=== PATIENT | male | born 1960 | race Caucasian/White ===

== ENCOUNTER 2017-12-23 05:01 | Observation (INO) | payer BC ==
[2017-12-23] MEDS ORDERED: Sodium Chloride 0.9% 1,000 ML IV ONE (05:25)
[2017-12-23] MEDS ORDERED: Sodium Chloride 0.9% 1,000 ML ONE ×2 (05:36→08:32)
--- NOTE | 2017-12-23 05:37 | C.PDOC ---
History Of Present Illness 57 year old male presents to the ER with a complaint of intermittent left flank pain for the past few days that has worsened today. Patient has a Hx of kidney stones and notes the pain feels similar to that. Denies fever, chills, nausea, or vomiting. Chief Complaint (Nursing): Male Genitourinary History Per: Patient History/Exam Limitations: no limitations Onset/Duration Of Symptoms: Days, Intermittent Episodes Quality Of Discomfort: Unable To Describe Associated Symptoms: Back Pain (Left flank). denies: Fever, Chills, Nausea, Vomiting Alleviating Factors: None Recent travel outside of the [place]: No Past Medical History Reviewed: Historical Data, Nursing Documentation, Vital Signs Vital Signs: Last Vital Signs Temp 97.8 F 12/23/17 05:12 Pulse 93 H 12/23/17 05:12 Resp 18 12/23/17 05:12 BP 174/94 H 12/23/17 05:12 Pulse Ox 96 12/23/17 05:39 - Medical History PMH: Kidney Stones, Chronic Kidney Disease Surgical History: Appendectomy, Cholecystectomy Family History: States: Unknown Family Hx - Social History Hx Alcohol Use: No Hx Substance Use: No - Immunization History Hx Tetanus Toxoid Vaccination: No Hx Influenza Vaccination: No Hx Pneumococcal Vaccination: No Review Of Systems Constitutional: Negative for: Fever, Chills Cardiovascular: Negative for: Chest Pain, Palpitations Respiratory: Negative for: Shortness of Breath Gastrointestinal: Negative for: Nausea, Vomiting Musculoskeletal: Positive for: Back Pain (Left flank) Physical Exam - Physical Exam Appears: Non-toxic Skin: Normal Color, Warm, Dry Head: Atraumatic, Normacephalic Eye(s): bilateral: Normal Inspection Oral Mucosa: Moist Chest: Symmetrical, No Tenderness Cardiovascular: Rhythm Regular Respiratory: Normal Breath Sounds, No Rales, No Rhonchi, No Wheezing Gastrointestinal/Abdominal: Soft, Tenderness (LLQ), No Guarding, No Rebound Back: CVA Tenderness (Left), No Vertebral Tenderness, No Paraspinal Tenderness Neurological/Psych: Oriented x3, Normal Speech, Other (No focal deficits) ED Course And Treatment - Laboratory Results Result Diagrams: 12/23/17 05:38 12/23/17 05:38 O2 Sat by Pulse Oximetry: 96 (Room air) Pulse Ox Interpretation: Normal Progress Note: CT abd/pel, blood work, and urinalysis ordered. Flomax, IV fluids , and toradol administered. Disposition Counseled Patient/Family Regarding: Diagnosis - Disposition Disposition Time: 07:00 Condition: STABLE Forms: [facility] (Romanian) - Clinical Impression Clinical Impression: Left flank pain - Scribe Statement The provider has reviewed the documentation as recorded by the Scribe Flako Jauregui All medical record entries made by the Scribe were at my direction and personally dictated by me. I have reviewed the chart and agree that the record accurately reflects my personal performance of the history, physical exam, medical decision making, and the department course for this patient. I have also personally directed, reviewed, and agree with the discharge instructions and disposition.
[2017-12-23 05:40] LABS: BASO % 0.3 % (0.0-2.0); HEMOGLOBIN 13.7 g/dL (12.0-18.0); LYMPH # 0.9 K/uL (1.0-4.3); LYMPH % 7.5 % (20.0-40.0); MEAN CELL VOLUME 92.2 fL (80.0-94.0); MEAN CORPUSCULAR HEMOGLOBIN 30.9 pg (27.0-31.0); MEAN CORPUSCULAR HGB CONC 33.5 g/dL (33.0-37.0); MEAN PLATELET VOLUME 7.1 fL (7.2-11.7); MONO # 0.7 K/uL (0.0-0.8); MONO % 5.8 % (0.0-10.0); NEUT # 10.4 K/uL (1.8-7.0); NEUT % 86.4 % (50.0-75.0); PLATELET COUNT 197 K/uL (130-400); RBC 4.42 Mil/uL (4.40-5.90)
[2017-12-23 05:43] LABS: SQUAMOUS EPITHIAL < 1 /hpf (0-5); URINE BILIRUBIN NEGATIVE (NEGATIVE); URINE CLARITY Clear (Clear); URINE COLOR Yellow (YELLOW); URINE GLUCOSE (UA) 1+ mg/dL (Normal); URINE LEUKOCYTE ESTERASE NEG Leu/uL (Negative); URINE NITRATE NEGATIVE (NEGATIVE); URINE PROTEIN 2+ mg/dL (NEGATIVE); URINE UROBILINOGEN NORMAL mg/dL (0.2-1.0)
[2017-12-23 06:00] LABS: ALB/GLOB RATIO 1.3 (1.0-2.1); ALBUMIN 4.3 g/dL (3.5-5.0); ALT/SGPT 77 U/L (21-72); AST/SGOT 69 U/L (17-59); BLOOD UREA NITROGEN 16 mg/dL (9-20); CALCIUM 8.8 mg/dl (8.6-10.4); GFR AFRICAN-AMERICAN > 60; GFR NON-AFRICAN AMERICAN > 60; LIPASE 496 U/L (23-300)
[2017-12-23 06:08] LABS: URINE BLOOD 1+ (NEGATIVE)
[2017-12-23 06:35] LABS: LYMPHOCYTE 9 % (20-40); MONOCYTE 5 % (0-10); NEUTROPHIL 86 % (50-75); PLATELET ESTIMATE NORMAL (NORMAL); TOTAL CELLS COUNTED 100
--- NOTE | 2017-12-23 07:23 | CT ---
EXAM: CT Abdomen and Pelvis Without Intravenous Contrast CLINICAL HISTORY: 57 years old, male; Pain; Abdominal pain; Flank; Left; Additional info: Left flank pain TECHNIQUE: Axial computed tomography images of the abdomen and pelvis without intravenous contrast. All CT scans at this facility use one or more dose reduction techniques, viz.: automated exposure control; ma/kV adjustment per patient size (including targeted exams where dose is matched to indication; i.e. head); or iterative reconstruction technique. 664 images are submitted. Coronal and sagittal reformatted images were created and reviewed. COMPARISON: No relevant prior studies available. FINDINGS: Lower thorax: There is bibasilar atelectasis. ABDOMEN:Limitations: Absence of IV contrast decreases sensitivity for detecting solid organ and vascular abnormality and injury. Liver: Unremarkable. Gallbladder and bile ducts: Cholecystectomy. Pancreas: Unremarkable. No ductal dilation. Spleen: Unremarkable. No splenomegaly. Adrenals: Unremarkable. No mass. Kidneys and ureters: Left perinephric inflammatory change with moderate left hydroureteronephrosis with multiple left ureteral stones seen on image 63 series 601 approximately 4 in number measuring 3-5 mm representing acute obstructive uropathy. Nonobstructive left renal stones. Stomach and bowel: Unremarkable. No obstruction. No mucosal thickening. Appendix: Appendix is seen and is top normal in thickness measuring 6 to 7 mm with no periappendiceal stranding. PELVIS: Bladder: Unremarkable. Reproductive: Enlarged prostate gland. ABDOMEN and PELVIS: Intraperitoneal space: Unremarkable. No free air. No significant fluid collection. Bones/joints: Pars defect at L4. Grade 1 spondylolisthesis of L4 over L5. No acute fracture. No dislocation. Soft tissues: Unremarkable. Vasculature: Unremarkable. No abdominal aortic aneurysm. Lymph nodes: Unremarkable. No enlarged lymph nodes. IMPRESSION: 1. Left perinephric inflammatory change with moderate left hydroureteronephrosis with multiple left ureteral stones seen on image 63 series 601 approximately 4 in number measuring 3-5 mm representing acute obstructive uropathy.
[2017-12-23] MEDS ORDERED: Sodium Chloride 0.9% 1,000 ML IV STA (07:36)
[2017-12-23] MEDS ORDERED: LIDOCAINE IV STA ×2 (07:36→07:50)
[2017-12-23] MEDS ORDERED: SODIUM CHLORIDE 0.9% IV STA ×2 (07:36→07:50)
[2017-12-23] MEDS ORDERED: Iohexol 240 (50 ml) ONE (11:58)
[2017-12-23] MEDS: cefTRIAXone 1 gm 1 GM/100 ML BAG IVPB ONE ×2 (12:09→12:10)
[2017-12-23] MEDS ORDERED: Midazolam 2 MG/2 ML VIAL ONE (12:11)
[2017-12-23] MEDS ORDERED: Propofol 10 mg/ml Inj (20 ML) ONE (12:11)
[2017-12-23] MEDS ORDERED: Oxycodone/Acetaminophen 5/325 mg Tab PO PRN (12:37)
--- NOTE | 2017-12-23 12:54 | OP ---
PROCEDURE DATE: PREOPERATIVE DIAGNOSES: Left multiple upper ureteral stone on the left side with lower pole stone with obstruction. POSTOPERATIVE DIAGNOSES: Left ureteral stone, left lower pole stone with intractable pain. PROCEDURE: Cystoscopy, insertion of stent. DESCRIPTION OF PROCEDURE: While the patient in lithotomy position, genitalia prepped and draped in sterile fashion. X-ray done, which revealed upper ureteral stone. A #22 cystoscope inserted. The bladder normal. The prostate moderately large. Sensor wire inserted into the left side. A 4.7 Bard stent Multilink was inserted. Positioned up to the renal pelvis and upper jazmine down to the bladder coiled in both sides. I can see the stone more in the upper ureter and some in the renal pelvis, some in the lower pole. The patient tolerated the procedure well. After entering the bladder, the scope removed and the patient will be transferred to the recovery in stable condition. Mainor Ham MD
--- NOTE | 2017-12-23 12:59 | RAD ---
PROCEDURE: Intraoperative Fluoroscopy. HISTORY: LEFT URETRAL STONE FINDINGS: Fluoroscopic assistance was provided for left nephro ureteral stent placement. Please refer to the operative report from
--- NOTE | 2017-12-23 13:00 | RAD ---
Abdomen single frontal view History: Left ureteral calculi. Comparison: CT scan dated 12/23/2017 Findings: Left nephro ureteral stent in place. Multiple radiopaque calculi project over the left renal fossa as well as adjacent to the proximal and mid left ureter. Surgical clips in the right upper abdomen. Fecal retention in the colon. Degenerative changes in the spine. Impression: Left nephro ureteral stent in place. Multiple radiopaque calculi project over the left renal fossa as well as adjacent to the proximal and mid left ureter.
[2017-12-23 17:21] VITALS: BP 129/80; PULSE 80; RESP 20; TEMP 98; O2SAT 98
--- NOTE | 2017-12-24 08:05 | HP ---
DATE: 12/23/2017 CHIEF COMPLAINT: Left flank pain radiating to the lower abdomen. HISTORY OF PRESENT ILLNESS: Patient is a 57-year-old who had ESWL for lower pole stone, 1.5 cm. He refused the stent before, presented to the ER. Before the procedure, one week, also had pain due to some fragment passing, but this time, he has severe pain, could not take it. CT scan revealed left hydro with multiple left ureteral stones seen on the upper part of the ureter and multiple stone on the renal pelvis, more stone will come and cause more pain. Patient has low tolerance for any pain. Even he is taking 7.5 Percocet, it did not help him. Still a lot of fragment in the lower pole and those stones found on the CAT scan still high in the upper ureter. PHYSICAL EXAMINATION: ABDOMEN: Soft. Left flank tenderness. No kidney palpable. No suprapubic fullness. I explained to him and to the family that I am going to put stent because this will be long process and he needs to drain the kidney, which is partially hydro. IMPRESSION: Left ureteral stone, left kidney stone, some stone on the renal pelvis, condition post extracorporeal shock wave lithotripsy, intractable pain, not responding to medication. PLAN: Insertion of stent. Mainor Ham MD
== END 2017-12-23 17:33 | disposition home or self-care (01) ==
LOC: C.ER 05:01 → C.9E 11:09 → C.3T 11:53
PROVIDERS: ADMIT Specialist; ATTEND Specialist
DX: N13.2 Hydronephrosis with renal and ureteral calculous obstruction (principal); N18.9 Chronic kidney disease, unspecified
CPT/HCPCS: 52332; 74018; 74176; 80053; 81001; 83690; 85025; 87086; 96361; 96374; 99285; C1769; C2625; G0378; J0696; J1885; J2001; J7040